=== PATIENT | female | born 1950 | race Caucasian/White ===

== ENCOUNTER 2019-08-10 21:21 | Observation (INO) | payer OTHER ==
[~2019-08-10] VITALS: Ht 154 cm; Wt 56.1 kg
[2019-08-10] MEDS ORDERED: cloNIDine 0.1 MG (CATAPRES) TAB PO ONE ×2 (21:30→21:45)
[2019-08-10] MEDS ORDERED: LISI-556 PO (21:34)
[2019-08-10] MEDS ORDERED: DICL50TA4 PO (21:34)
[2019-08-10] MEDS ORDERED: METO50TA15 PO (21:34)
[2019-08-10] MEDS ORDERED: ATOR20TA66 PO (21:34)
[2019-08-10] MEDS ORDERED: PRED1POW2 MC (21:34)
--- NOTE | 2019-08-10 21:35 | ED Chest Pain ---
General Chief Complaint: Chest Pain Stated Complaint: RAPID HEART BEAT Source: patient, family Exam Limitations: no limitations History of Present Illness Date Seen by Provider: Aug 10, 2019 Time Seen by Provider: 21:33 Initial Comments To ER by private vehicle from home with reports of high blood pressure headache and right arm pain. Patient has had ongoing issues with high blood pressure however she is on lisinopril 5 mg daily and metoprolol. This evening daughter checked the blood pressure found it to be elevated and also noticed the patient to be diaphoretic with complaints of mild chest pain, right shoulder pain and headache. She was at the [facility] 3 days ago for the right shoulder pain and was given prednisone. Timing/Duration: changing over time Severity/Quality: moderate, pressure Location: central Radiation: no radiation Activities at Onset: none ASA po PRESS SETTER: No NTG SL PRESS SETTER: No Allergies and Home Medications Allergies Coded Allergies: No Known Drug Allergies (Unverified , 08/10/19) Home Medications Lisinopril 5 Mg Tablet, 5 MG PO DAILY, (Reported) Metoprolol Tartrate 50 Mg Tablet, Unknown Dose PO BID, (Reported) Patient Home Medication List Home Medication List Reviewed: Yes Review of Systems Review of Systems Constitutional: see HPI EENTM: No Symptoms Reported Respiratory: No Symptoms Reported Cardiovascular: See HPI, Chest Pain Gastrointestinal: No Symptoms Reported Genitourinary: No Symptoms Reported Musculoskeletal: no symptoms reported Skin: no symptoms reported Psychiatric/Neurological: See HPI Endocrine: No Symptoms Reported Hematologic/Lymphatic: No Symptoms Reported Past Hsonses-Jcpvlu-Yllnie Hx Patient Social History Recent Foreign Travel: No Contact w/Someone Who Travel: No Physical Exam Vital Signs Vital Signs - First Documented 08/10/19 21:23 Temp 36.6 Pulse 74 Resp 18 B/P (MAP) 188/120 (142) Pulse Ox 97 O2 Delivery Room Air Capillary Refill : Less Than 3 Seconds Height, Weight, BMI Height: '" Weight: lbs. oz. kg; BMI Method: General Appearance: No Apparent Distress, WD/WN, Obese HEENT: PERRL/EOMI, TMs Normal Respiratory: No Accessory Muscle Use, No Respiratory Distress Cardiovascular: Regular Rate, Rhythm, Normal Peripheral Pulses Gastrointestinal: Normal Bowel Sounds, Non Tender, Soft Neurologic/Psychiatric: Alert, Oriented x3 Skin: Normal Color, Warm/Dry Progress/Results/Core Measures Results/Orders Lab Results Laboratory Tests Test 08/10/19 21:25 Range/Units White Blood Count 8.1 4.3-11.0 10^3/uL Red Blood Count 4.80 4.35-5.85 10^6/uL Hemoglobin 14.5 11.5-16.0 G/DL Hematocrit 42 35-52 % Mean Corpuscular Volume 88 80-99 FL Mean Corpuscular Hemoglobin 30 25-34 PG Mean Corpuscular Hemoglobin Concent 34 32-36 G/DL Red Cell Distribution Width 12.7 10.0-14.5 % Platelet Count 182 130-400 10^3/uL Mean Platelet Volume 12.9 H 7.4-10.4 FL Neutrophils (%) (Auto) 70 42-75 % Lymphocytes (%) (Auto) 25 12-44 % Monocytes (%) (Auto) 5 0-12 % Eosinophils (%) (Auto) 0 0-10 % Basophils (%) (Auto) 0 0-10 % Neutrophils # (Auto) 5.7 1.8-7.8 X 10^3 Lymphocytes # (Auto) 2.0 1.0-4.0 X 10^3 Monocytes # (Auto) 0.4 0.0-1.0 X 10^3 Eosinophils # (Auto) 0.0 0.0-0.3 10^3/uL Basophils # (Auto) 0.0 0.0-0.1 10^3/uL Prothrombin Time 13.3 12.2-14.7 SEC INR Comment 1.0 0.8-1.4 Activated Partial Thromboplast Time 28 24-35 SEC Sodium Level 139 135-145 MMOL/L Potassium Level 4.0 3.6-5.0 MMOL/L Chloride Level 104 98-107 MMOL/L Carbon Dioxide Level 20 L 21-32 MMOL/L Anion Gap 15 H 5-14 MMOL/L Blood Urea Nitrogen 17 7-18 MG/DL Creatinine 0.79 0.60-1.30 MG/DL Estimat Glomerular Filtration Rate > 60 BUN/Creatinine Ratio 22 Glucose Level 166 H 70-105 MG/DL Calcium Level 9.2 8.5-10.1 MG/DL Corrected Calcium 8.5-10.1 MG/DL Magnesium Level 2.1 1.6-2.4 MG/DL Total Bilirubin 0.3 0.1-1.0 MG/DL Aspartate Amino Transf (AST/SGOT) 14 5-34 U/L Alanine Aminotransferase (ALT/SGPT) 18 0-55 U/L Alkaline Phosphatase 97 40-136 U/L Myoglobin 15.0 10.0-92.0 NG/ML Troponin I < 0.028 <0.028 NG/ML B-Type Natriuretic Peptide 197.4 H <100.0 PG/ML Total Protein 8.5 H 6.4-8.2 GM/DL Albumin 4.8 H 3.2-4.5 GM/DL My Orders Orders - KATHERINE GUIDRY APRN Ekg Tracing (08/10/19 21:22) Ct Head Wo (08/10/19 21:29) Cbc With Automated Diff (08/10/19:) Magnesium (08/10/19:) Chest 1 View, Ap/Pa Only (08/10/19:) Ekg Tracing (08/10/19:29) Comprehensive Metabolic Panel (08/10/19:) Myoglobin Serum (08/10/19:) Protime With Inr (08/10/19:) Partial Thromboplastin Time (08/10/19 21:) O2 (08/10/19 21:) Monitor-Rhythm Ecg Trace Only (08/10/19:) Lipid Panel (08/11/19 06:00) Ed Iv/Invasive Line Start (08/10/19 21:29) BNP (08/10/19 21:29) Troponin I (08/10/19 21:) I-Stat Bedside Testing (08/10/19 21:) Ct Angio Chest W (08/10/19 21:29) Aspirin Chewable Tablet (Baby Aspirin Ch (08/10/19 21:45) Clonidine Tablet (Catapres Tablet) (08/10/19 21:45) Iohexol Injection (Omnipaque 350 Mg/Ml 1 (08/10/19 22:30) Ns (Ivpb) (Sodium Chloride 0.9% Ivpb Bag (08/10/19 22:30) Nitroglycerin 0.4 Mg Btl 25's (Nitrostat (08/10/19 22:30) Fentanyl Injection (Sublimaze Injection (08/10/19 23:00) Medications Given in ED Current Medications Medications Dose Ordered Sig/Manisha Route Start Time Stop Time Status Last Admin Dose Admin Aspirin 324 mg ONCE ONCE PO 08/10/19 21:45 08/10/19 21:46 DC 08/10/19 21:42 324 MG Clonidine HCl 0.2 mg ONCE ONCE PO 08/10/19 21:45 08/10/19 21:46 DC 08/10/19 21:42 0.2 MG Iohexol 100 ml ONCE ONCE IV 08/10/19 22:30 08/10/19 22:31 UNV 08/10/19 22:20 100 ML Nitroglycerin 1 TAB Q 5 MIN X 3 NEEDED PRN SL 08/10/19 22:30 08/10/19 22:35 0.4 MG Sodium Chloride 80 ml ONCE ONCE IV 08/10/19 22:30 08/10/19 22:31 UNV 08/10/19 22:20 80 ML Vital Signs/I&O 08/10/19 08/10/19 21:23 21:23 Temp 36.6 Pulse 74 Resp 18 B/P (MAP) 188/120 (142) Pulse Ox 97 O2 Delivery Room Air Room Air Departure Communication (Admissions) Time/Spoke to Admitting Phy: 22:49 223-about 45 minutes after administration of 0.2 mg of clonidine her blood pressure is down to 177/93. Her headache is better but she complains of some persistent mild chest tightness. Daughter is present who translates for her. Does report that the lisinopril was increased from 5 mg to 10 mg daily 3 days ago at [facility]. 2246-she was given one sublingual nitroglycerin, her chest pain is still present but better, blood pressure down to 128/97. We'll give one dose of fentanyl because she also has a headache. 2299-CT chest shows no evidence of coronary embolism no acute chest pathology there is cholelithiasis and a 1.8 cm right lobe of liver nodule, no intracranial pathology either.Further discussion with daughter, the patient is traveling back to their home country of [place] [facility] on Friday, suspect that anxiety may be causing part of these issues. Impression Primary Impression: Chest pain Qualified Codes: R07.9 - Chest pain, unspecified Disposition: ADMITTED INPATIENT Condition: Stable Admissions Decision to Admit Reason: Admit from ER (General) Decision to Admit/Date: Aug 10, 2019 Time/Decision to Admit Time: 22:34 Departure-Patient Inst. Referrals: NO,LOCAL PHYSICIAN (PCP) Primary Care Physician KATHERINE GUIDRY APRN Aug 10, 2019 21:34
[2019-08-10 21:36] LABS: BASOPHILS % (AUTO) 0 % (0-10); EOSINOPHILS % (AUTO) 0 % (0-10); HEMATOCRIT 42 % (35-52); HEMOGLOBIN 14.5 G/DL (11.5-16.0); LYMPHOCYTES % (AUTO) 25 % (12-44); MEAN CORPUSCULAR HEMOGLOBIN 30 PG (25-34); MEAN CORPUSCULAR HGB CONC 34 G/DL (32-36); MEAN CORPUSCULAR VOLUME 88 FL (80-99); MEAN PLATELET VOLUME 12.9 FL (7.4-10.4); MONOCYTES # (AUTO) 0.4 X 10^3 (0.0-1.0); MONOCYTES % (AUTO) 5 % (0-12); NEUTROPHILS # (AUTO) 5.7 X 10^3 (1.8-7.8); NEUTROPHILS % (AUTO) 70 % (42-75); PLATELET COUNT 182 10^3/uL (130-400); RED CELL DISTRIBUTION WIDTH 12.7 % (10.0-14.5); WHITE BLOOD COUNT 8.1 10^3/uL (4.3-11.0)
[2019-08-10] MEDS ORDERED: ASPIRIN 81 MG CHEW (CHILDREN'S ASA) PO ONE (21:45)
[2019-08-10 21:53] LABS: ALANINE AMINOTRANSFERASE 18 U/L (0-55); ALBUMIN 4.8 GM/DL (3.2-4.5); ALKALINE PHOSPHATASE 97 U/L (40-136); BILIRUBIN,TOTAL 0.3 MG/DL (0.1-1.0); BUN/CREATININE RATIO 22; CALCIUM 9.2 MG/DL (8.5-10.1); CARBON DIOXIDE 20 MMOL/L (21-32); CHLORIDE 104 MMOL/L (98-107); CREATININE SERUM 0.79 MG/DL (0.60-1.30); GFR ESTIMATED > 60; GLUCOSE 166 MG/DL (70-105); MAGNESIUM 2.1 MG/DL (1.6-2.4); SODIUM 139 MMOL/L (135-145); TOTAL PROTEIN 8.5 GM/DL (6.4-8.2)
[2019-08-10 21:56] LABS: PROTHROMBIN TIME PATIENT 13.3 SEC (12.2-14.7)
[2019-08-10] MEDS ORDERED: NS 100 ML (IVPB) BAG IV ONE (22:30)
[2019-08-10] MEDS ORDERED: IOHEXOL 350 MG/ML 100 ML (OMNIPAQUE 350) VIAL IV ONE (22:30)
[2019-08-10] MEDS ORDERED: NITROGLYCERIN 0.4 MG SL TABS BTL 25'S SL PRN (22:30)
[2019-08-10] MEDS ORDERED: fentaNYL INJECTION 100 MCG/2 ML AMP IVP ONE (23:00)
[2019-08-11] VITALS (13 sets, daily range): BP systolic 101–152; BP diastolic 61–79
[2019-08-11] MEDS ORDERED: fentaNYL INJECTION 100 MCG/2 ML AMP IV PRN (00:30)
[2019-08-11] MEDS ORDERED: morphine INJ 4 MG/ML 1 ML (VIAL/SYRINGE) IV PRN (00:30)
[2019-08-11] MEDS ORDERED: ONDANSETRON 4 MG/2 ML (SDV) Z0FRAN IV PRN (00:30)
[2019-08-11] MEDS ORDERED: LABETALOL HCL 20 MG/4 ML VIAL IV PRN (00:30)
[2019-08-11] MEDS ORDERED: NITROGLYCERIN 0.4 MG SL TABS BTL 25'S SL PRN (00:30)
[2019-08-11 06:22] LABS: CHOLESTEROL 169 MG/DL (< 200); HDL CHOLESTEROL 43 MG/DL (40-60); TRIGLYCERIDES 151 MG/DL (<150); VLDL CHOLESTEROL 30 MG/DL (5-40)
--- NOTE | 2019-08-11 07:39 | Diagnostic Imaging Report ---
INDICATION: Tachycardia Single PA view of the chest reveals normal-sized heart. There may be mild right perihilar atelectasis and/or pneumonitis. Minimal linear atelectasis or scarring is seen in the left base. There is no evidence of pneumothorax or focal consolidation. No pleural fluid is identified. IMPRESSION: Mild atelectasis and/or pneumonitis in right perihilar region without other definite acute abnormality detected. Dictated by: Dictated on workstation # [id number]
--- NOTE | 2019-08-11 08:00 | Diagnostic Imaging Report ---
PROCEDURE: CT head without contrast. TECHNIQUE: Multiple contiguous axial images were obtained through the brain without the use of intravenous contrast. Auto Exposure Controls were utilized during the CT exam to meet ALARA standards for radiation dose reduction. INDICATION: Headache. Comparison: None available. Findings: No hyperdense hemorrhage or space-occupying mass. There is minimal mineralization within the bilateral basal ganglia is likely senescent etiology. No hydrocephalus or midline shift. The basilar cisterns are normal. Ariza-white matter differentiation is well preserved. The mastoid air cells are clear. Paranasal sinuses are normal. No focal osseous abnormality of the calvarium. Impression: No acute intracranial process. Findings are in agreement with the preliminary report. Dictated by: Dictated on workstation # [id number]
--- NOTE | 2019-08-11 08:03 | Diagnostic Imaging Report ---
PROCEDURE: CT angiography of the chest with contrast. TECHNIQUE: Multiple contiguous axial images were obtained through the chest after uneventful bolus administration of intravenous contrast. 3D reconstructed CTA MIP acquisitions were also performed. Auto Exposure Controls were utilized during the CT exam to meet ALARA standards for radiation dose reduction. INDICATION: Rapid heart rate. FINDINGS: The thyroid does contain low-density nodule in the right lobe with peripheral calcification. Evaluation of the pulmonary arterial system is without evidence of thromboembolism. No filling defects are seen within central, lobar or segmental branches. The thoracic aorta is normal caliber. No dissection is identified. No pericardial or pleural fluid is detected. There is some dependent atelectasis in both lung bases. Otherwise lungs appear clear. Upper abdomen demonstrates small stones in the gallbladder. IMPRESSION: 1. No evidence of pulmonary embolism or thoracic aortic dissection. 2. Cholelithiasis. 3. Right thyroid nodule. Dedicated thyroid ultrasound on a nonemergent basis could be performed for better characterization. Dictated by: Dictated on workstation # [id number]
[2019-08-11] MEDS ORDERED: DICL75TA2 PO (08:51)
[2019-08-11] MEDS ORDERED: METO50TA7 PO (08:51)
[2019-08-11] MEDS ORDERED: ATOR40TA70 PO (08:51)
[2019-08-11] MEDS ORDERED: OMG1KC PO (08:51)
[2019-08-11] MEDS ORDERED: PRD20T PO (08:51)
[2019-08-11] MEDS ORDERED: LISI10TA2 PO (08:51)
[2019-08-11] MEDS ORDERED: ENOXAPARIN 40 MG/0.4 ML (LOVENOX) SYR SC SCH (09:00)
[2019-08-11] MEDS ORDERED: lisINopril 20 MG (PRINIVIL) TABLET PO SCH (09:00)
[2019-08-11] MEDS ORDERED: ASPIRIN E.C. 81 MG (ECOTRIN) TAB PO SCH (09:00)
--- NOTE | 2019-08-11 10:04 | NUR ---
CALLED [facility] FOR A LIST OF RECENTLY FILLED MEDICATIONS, I ALSO HAD A LIST FAXED OVER FROM [facility]. I SPOKE WITH A NURSE AT [facility] ABOUT REPOSITORY MEDS. PATIENT ALSO HAD HER BOTTLES WITH HER. [facility] FILLED: 08-07-[address] 75MG BID 08-07-19 PREDNISONE 20MG 2 DAILY X 5 DAYS THESE WERE FROM [facility]ALK IN CLINIC AND PATIENT HAS BOTH THESE BOTTLES WITH HER REPOSITORY MEDS: 07-02-19 METOPROLOL ER 50MG DAILY 07-02-19 ATORVASTATIN 40MG DAILY 07-02-19 LISINOPRIL 10MG DAILY (PATIENT HAS LISINOPRIL 5MG TABLETS BUT FAMILY STATES THEY INCREASED TO 10MG AND THEY HAVE BEEN TAKING TWO OF THE 5'S BUT ALSO HAVE 10MG TABS AT HOME) ADDITIONALLY THE MED LIST FROM [facility] STATES FISH OIL DAILY, DAUGHTER STATES SHE NORMALLY TAKES A FISH OIL DAILY WHEN SHE IS FEELING BETTER BUT SINCE SHE HAS BEEN UNDER THE WEATHER RECENTLY SHE HAS STOPPED TAKING IT. I LEFT IT ON THE MED [facility] AT THIS TIME.
--- NOTE | 2019-08-11 10:29 | Consultation-Cardiology ---
HPI-Cardiology Cardiology Consultation Date of Consultation 08/11/19 Date of Admission Time Seen by Provider: 10:24 Indication: Chest pain HPI Patient is a 69 y/o female who presented to the ER with complaints of chest pain and elevated BP last night. Had been seeing her PCP for HTN and lisinopril recently increased. Daughter reports patient complaining of chest pain with radiation to right arm last night and noted to be diaphoretic. Patient states she has had intermittent chest pain for several months. Denies any acute chest pain at this time. Denies dyspnea, dizziness or lightheadedness. c/o headache last night, now improved. 69-year-old lady Stateless-speaking, I was able to obtain the history with assistance of her family, has been having chest pain for a long time on and off, radiating to the arm, some shortness of breath, has history of hypertension hyperlipidemia, her chest pain got worse and came into the emergency room. This morning she is feeling better. Denied any chest pain, having mild headache. Home Medications & Allergies Allergies: Coded Allergies: No Known Drug Allergies (Unverified , 08/10/19) Home Medication List Reviewed: Yes Medication list reviewed OAD-Hozpgb-Xzxiqi Hx Patient Social History Marital Status: single Employed/Student: unemployed Alcohol Use: Denies Use Recreational Drug Use: No Smoking Status: Never a Smoker 2nd Hand Smoke Exposure: No Recent Foreign Travel: No Recent Infectious Disease Expo: No Recent Hopitalizations: No Immunizations Up To Date Tetanus Booster (TDap): Unknown Date of Pneumonia Vaccine: May 28, 2019 Date of Influenza Vaccine: May 28, 2019 Past Medical History HTN, HLP Family Medical History Significant Family History: No Pertinent Family Hx Review of Systems-General Review of Systems Constitutional: see HPI; No chills, No diaphoresis, No dizziness, No fever; malaise; No weakness EENTM: No blurred vision, No double vision, No vision loss, No epistaxis, No nose pain, No throat pain Respiratory: see HPI; No cough, No dyspnea on exertion, No short of breath Cardiovascular: see HPI, chest pain; No edema, No Hx of Intervention, No palpitations, No syncope, No vascular heart diseas Gastrointestinal: No abdominal pain, No constipation Genitourinary: No dysuria, No frequency, No hematuria Musculoskeletal: no symptoms reported; No back pain, No joint pain Skin: no symptoms reported; No lesions, No rash Psychiatric/Neurological: See HPI Reviewed Test Results Reviewed Test Results Lab Laboratory Tests 08/10/19 21:25: White Blood Count 8.1, Red Blood Count 4.80, Hemoglobin 14.5, Hematocrit 42, Mean Corpuscular Volume 88, Mean Corpuscular Hemoglobin 30, Mean Corpuscular Hemoglobin Concent 34, Red Cell Distribution Width 12.7, Platelet Count 182, Mean Platelet Volume 12.9H, Neutrophils (%) (Auto) 70, Lymphocytes (%) (Auto) 25, Monocytes (%) (Auto) 5, Eosinophils (%) (Auto) 0, Basophils (%) (Auto) 0, Neutrophils # (Auto) 5.7, Lymphocytes # (Auto) 2.0, Monocytes # (Auto) 0.4, Eosinophils # (Auto) 0.0, Basophils # (Auto) 0.0, Prothrombin Time 13.3, INR Comment 1.0, Activated Partial Thromboplast Time 28, Sodium Level 139, Potassium Level 4.0, Chloride Level 104, Carbon Dioxide Level 20L, Anion Gap 15H, Blood Urea Nitrogen 17, Creatinine 0.79, Estimat Glomerular Filtration Rate > 60, BUN/Creatinine Ratio 22, Glucose Level 166H, Calcium Level 9.2, Corrected Calcium , Magnesium Level 2.1, Total Bilirubin 0.3, Aspartate Amino Transf ( AST/SGOT) 14, Alanine Aminotransferase (ALT/SGPT) 18, Alkaline Phosphatase 97, Myoglobin 15.0, Troponin I < 0.028, B-Type Natriuretic Peptide 197.4H, Total Protein 8.5H, Albumin 4.8H 08/10/19 22:31: Lab Scanned Report LAB Reports 08/10/19 23:45: Troponin I < 0.028 08/11/19 05:55: Troponin I < 0.028, Triglycerides Level 151H, Cholesterol Level 169, LDL Cholesterol Direct 110, VLDL Cholesterol 30, HDL Cholesterol 43 ECG Impression ECG Initial ECG Rhythm: Normal Sinus Physical Exam Physical Exam Vital Signs Vital Signs - First Documented 08/10/19 21:23 Temp 36.6 Pulse 74 Resp 18 B/P (MAP) 188/120 (142) Pulse Ox 97 O2 Delivery Room Air Capillary Refill : Less Than 3 Seconds Height, Weight, BMI Height: '" Weight: lbs. oz. kg; 23.65 BMI Method: General Appearance: No Apparent Distress, WD/WN, Obese HEENT: PERRL/EOMI, TMs Normal Neck: Non Tender, Supple; No Carotid Bruit Respiratory: Chest Non Tender, Lungs Clear, No Accessory Muscle Use, No Respiratory Distress Cardiovascular: Regular Rate, Rhythm, No Edema, No Gallop, No JVD, No Murmur, Normal Peripheral Pulses Gastrointestinal: Normal Bowel Sounds, Non Tender, Soft Rectal: Deferred Back: No CVA Tenderness Extremity: Non Tender, No Calf Tenderness Neurologic/Psychiatric: Alert, Oriented x3, camera mechanic II-XII Norm as Tested Skin: Normal Color, Warm/Dry A/P-Cardiology Admission Diagnosis Chest pain HTN HLP Right shoulder pain Assessment/Plan Chest pain, nonspecific etiology, resolved. EKG reveals no acute ST changes, cardiac enzymes negative. BNP mildly elevated. Was given SL nitro in ER with some relief of her CP. Planning for EST for further evaluation. HTN- maintained on lisinopril and Toprol XL as outpatient. Recently started on oral steroid for right shoulder pain which could be cause of elevated BP. Restart home BP medications and continue to monitor. HLP- maintained on statin. Right shoulder pain, worse with movement and palpation, appears to be musculoskeletal in nature. Was started on PO steroids on 08/07/2019. Headache- improved. Multiple risk factors for underlying CAD, planning for stress test today. Thank you for allowing us to participate in the management of Ms. Garcia. This is Neli Eng PA-C, as a scribe for Dr. Clifford. Patient was seen and evaluated with Neli, examination performed, management plan was discussed, agree with the current scribed note, I made few changes to the note using Italic font Patient is not having any active pain at this time, cardiac enzymes and EKG did not show any acute abnormality Had elevated blood pressure Arrival to the emergency room yesterday, blood pressure is better at this time Restart home medication, planning to evaluate stress test today Patient was having significant headache yesterday, had mild headache this morning, feeling better at this time Clinical Quality Measures AMI/AHF: ASA po Prior to arrival: No DVT/VTE Risk/Contraindication: Risk Factor Score Per Nursin RFS Level Per Nursing on Admit: 2=Moderate NELI LEONG Aug 11, 2019 10:29 ANIBAL CLIFFORD MD Aug 11, 2019 11:05
--- NOTE | 2019-08-11 10:48 | NUR ---
1018 PT TO NUCLEAR MEDICINE WITH [facility] STAFF AND DAUGHTER.
[2019-08-11] MEDS ORDERED: REGADENOSON 0.4 MG/5 ML SYR (LEXISCAN) IV ONE ×2 (11:14→11:30)
--- NOTE | 2019-08-11 11:40 | Short Stay Summary-Hospitalist ---
History of Present Illness HPI/Chief Complaint CC: Chest pain HPI: This is a 69yo female who only speaks eritrean, who presented to the ER with chest pain. Pt was found to have risk factors for heart diseases so she was admitted, cardiac risk-stratified, Troponins all were normal and cardiac stress test was negative so she will be discharged on her current home BP medication. Source: patient, family Exam Limitations: language barrier Date Seen 08/11/19 Time Seen by a Provider: 10:00 Attending Physician Klarissa Vazquez DO [facility] Center/Se,[facility] Referring Physician Date of Admission Aug 10, 2019 at 22:31 Home Medications & Allergies Home Medications Reviewed patient Home Medication Reconciliation performed by pharmacy medication reconciliations property technician and/or nursing. Patients Allergies have been reviewed. Allergies Allergies Coded Allergies No Known Drug Allergies (Unverified08/10/19) Past Bsntdzt-Uefdlh-Rpkhrp Hx Past Med/Social Hx: Reviewed Nursing Past Med/Soc Hx, Reviewed and Corrections made Patient Social History Marrital Status: single Employed/Student: unemployed Alcohol Use: Denies Use Recreational Drug Use: No Smoking Status: Never a Smoker 2nd Hand Smoke Exposure: No Recent Foreign Travel: No Contact w/other who traveled: No Recent Hopitalizations: No Recent Infectious Disease Expo: No Immunizations Up To Date Tetanus Booster (TDap): Unknown Date of Pneumonia Vaccine: May 28, 2019 Date of Influenza Vaccine: May 28, 2019 Seasonal Allergies Seasonal Allergies: No Past Medical History Surgeries: Orthopedic Cardiac: Coronary Artery Disease, High Cholesterol, Hypertension : No Menopausal Musculoskeletal: Arthritis History of Blood Disorders: No Family History No Pertinent Family Hx Review of Systems Constitutional: see HPI Cardiovascular: chest pain Physical Exam Physical Exam Vital Signs Vital Signs - First Documented 08/10/19 21:23 Temp 36.6 Pulse 74 Resp 18 B/P (MAP) 188/120 (142) Pulse Ox 97 O2 Delivery Room Air Capillary Refill : Less Than 3 Seconds Height, Weight, BMI Height: '" Weight: lbs. oz. kg; 23.65 BMI Method: General Appearance: No Apparent Distress, WD/WN, Obese HEENT: PERRL/EOMI, TMs Normal Neck: Non Tender, Supple; No Carotid Bruit Respiratory: Chest Non Tender, Lungs Clear, No Accessory Muscle Use, No Respiratory Distress Cardiovascular: Regular Rate, Rhythm, No Edema, No Gallop, No JVD, No Murmur, Normal Peripheral Pulses Gastrointestinal: Normal Bowel Sounds, Non Tender, Soft Rectal: Deferred Back: No CVA Tenderness Extremity: Non Tender, No Calf Tenderness Neurologic/Psychiatric: Alert, Oriented x3, hydroponics grower II-XII Norm as Tested Skin: Normal Color, Warm/Dry Results Results/Procedures Labs Laboratory Tests 08/10/19 21:25 Patient resulted labs reviewed. Short Stay Diagnosis Discharge Diagnosis-Short Stay Admission Diagnosis Chest pain HTN HLP Final Discharge Diagnosis Chest pain with negative troponins and EST HTN HLP Conclusion Plan DC home Diagnosis/Problems Diagnosis/Problems (1) Chest pain Status: Acute Qualifiers: Qualified Codes: R07.9 - Chest pain, unspecified Clinical Quality Measures AMI/AHF: ASA po Prior to arrival: No DVT/VTE Risk/Contraindication: Risk Factor Score Per Nursin RFS Level Per Nursing on Admit: 2=Moderate KLARISSA VAZQUEZ DO Aug 11, 2019 11:40
--- NOTE | 2019-08-11 15:16 | STRESS TEST ---
DATE OF SERVICE: 08/11/2019 LEXISCAN MYOVIEW STRESS TEST REFERRING PHYSICIAN: [facility]. Baseline heart rate is 60. Baseline blood pressure 127/86. Baseline EKG sinus rhythm with no ischemic changes. In summary, the patient was injected with 10.56 mCi of technetium-99 Myoview and the resting images were obtained. Then, the patient received 0.4 mg of Lexiscan followed by 32.8 mCi of technetium-99 Myoview. Throughout the test, there were no EKG changes. The resting and stress images were reviewed and compared in the short axis, horizontal long axis, and vertical long axis views. Review of the images showed good radiotracer uptake with no significant ischemia or infarction. SSS is 0. TID value 1.0. On the gated images, the left ventricle appeared to be normal size with normal contractility. Calculated ejection fraction is 70%. CONCLUSION: 1. The patient tolerated Lexiscan well. 2. No ischemia or infarction on SPECT images. 3. Normal left ventricular size with normal contractility. Calculated ejection fraction is 70%. Job ID: [id number] DocumentID: [id number] Dictated Date: 08/11/2019 12:57:00 Granular Operator Date: 08/11/2019 15:15:16 Dictated By: ANIBAL LLANES MD
== END 2019-08-11 14:03 | disposition home or self-care (01) ==
LOC: ER 21:23 → ICU 22:31
PROVIDERS: ADMIT Internal Medicine; ATTEND Internal Medicine
DX: I10 Essential (primary) hypertension (principal); E78.5 Hyperlipidemia, unspecified; M19.90 Unspecified osteoarthritis, unspecified site; I25.10 Atherosclerotic heart disease of native coronary artery without angina pectoris; E78.00 Pure hypercholesterolemia, unspecified
CPT/HCPCS: 36415; 70450; 71045; 71275; 78452; 80053; 80061; 83735; 83874; 83880; 84484; 85025; 85610; 85730; 93005; 93017; 93041; 96374

== ENCOUNTER → 2022-01-02 | Outpatient (CLI) | payer OTHER ==
[~2022-01-02] MED LIST: ATOR20TA66 PO; ATOR40TA70 PO; DICL50TA4 PO; DICL75TA2 PO; LISI10TA25 PO; LISI5TAB20 PO; METO50TA15 PO; METO50TA7 PO; OMG1KC PO; PRD20T PO; PRED1POW2 MC
[2022-01-02 13:58] VITALS: BP 120/65
== END ==
LOC: CARD 13:27
PROVIDERS: ATTEND Pediatrics
DX: I20.8 Other forms of angina pectoris (principal)

== ENCOUNTER → 2022-03-11 | Outpatient (CLI) | payer OTHER ==
[~2022-03-11] MED LIST changes: +CATHETER FLUSH 10 ML SYR IVP PRN; +REGADENOSON 0.4 MG/5 ML SYR (LEXISCAN) IV ONE
[2022-03-11 09:50] VITALS: BP 138/80
--- NOTE | 2022-03-11 11:17 | Cardiology Stress Test Report ---
Stress Test Report Date of Procedure/Referring: Date of Procedure: Mar 11, 2022 [facility] Admitting Physician Admitting Physician: Attending Physician: Tone Corona DO Indications: CP Baseline Heart Rate: 51 Baseline Blood Pressure: Blood Pressure Systolic: 138 Blood Pressure Diastolic: 80 Baseline Vitals Vital Signs Date Time Temp Pulse Resp B/P (MAP) Pulse Ox O2 Delivery O2 Flow Rate FiO2 03/11/22 09:50 52 138/80 (99) Baseline EKG: Baseline EKG: Sinus bradycardia Summary After explaining the procedure to the patient, she signed a consent and then brought to the stress nuclear laboratory. Patient received 0.4 mg Lexiscan for stress test, ECG, heart rate and blood pressure were monitored continuously. Resting and stress dose of radio tracer were injected, imaging was acquired and reviewed in short axis, horizontal long axis and vertical long axis views. TID: 1.16 SSS: 4 SDS: 4 EF: 79 1. Patient tolerated Lexiscan well 2. Baseline sinus bradycardia persisted during test 3. Breast attenuation with mild decrease uptake involving the basal to mid anterior wall with mild reversibility, most probably secondary to breast attenuation. 4. Normal left ventricular size, EF 79% Copy Copies To 1: [facility] [place] ANIBAL LLANES MD Mar 11, 2022 11:17
== END ==
LOC: CARD 03-06 12:24
PROVIDERS: ATTEND Pediatrics
DX: I20.8 Other forms of angina pectoris (principal)
CPT/HCPCS: 78452; 93017; A9502

== ENCOUNTER → 2023-01-01 | Outpatient (CLI) | payer OTHER ==
[2023-01-01 12:57] VITALS: BP 146/81
--- NOTE | 2023-01-01 15:46 | Cardiology Stress Test Report ---
Stress Test Report Date of Procedure/Referring: Date of Procedure: Jan 01, 2023 [facility] Admitting Physician Admitting Physician: Attending Physician: Tone Corona DO Baseline Heart Rate: 55 Baseline Blood Pressure: Blood Pressure Systolic: 146 Blood Pressure Diastolic: 81 Baseline Vitals Vital Signs Date Time Temp Pulse Resp B/P (MAP) Pulse Ox O2 Delivery O2 Flow Rate FiO2 01/01/23 12:57 55 146/81 (102) Baseline EKG: Baseline EKG: NSR Summary After explaining the procedure to the patient, she signed a consent and then brought to the stress nuclear laboratory. Patient received 0.4 mg Lexiscan for stress test, ECG, heart rate and blood pressure were monitored continuously. Resting and stress dose of radio tracer were injected, imaging was acquired and reviewed in short axis, horizontal long axis and vertical long axis views. TID: 1.07 SSS: 5 SDS: 4 EF: 66 Patient tolerated Lexiscan well Breast attenuation with mild decrease uptake at the basal to mid anterior wall with mild reversibility Normal left ventricular size, ejection fraction 66% Copy Copies To 1: [facility]/ANIBAL IRVING MD Jan 01, 2023 15:46
== END ==
LOC: CARD 10:35
PROVIDERS: ATTEND Pediatrics
DX: I20.8 Other forms of angina pectoris (principal)
CPT/HCPCS: 78452; 93017; A9502

== ENCOUNTER 2023-01-15 07:46 | Day surgery (SDC) | payer OTHER ==
[2023-01-15] VITALS (8 sets, daily range): BP systolic 108–149; BP diastolic 62–78
[~2023-01-15] VITALS: Ht 152 cm; Wt 74.3 kg
[~2023-01-15 07:46] MED LIST changes: -CATHETER FLUSH 10 ML SYR IVP PRN; -REGADENOSON 0.4 MG/5 ML SYR (LEXISCAN) IV ONE
[2023-01-15] MEDS ORDERED: NS IV 1000 ML 1,000 ML IV ONE (08:00)
[2023-01-15] MEDS ORDERED: NS IV 1000 ML 1,000 ML IV SCH ×2 (08:00→10:45)
[2023-01-15] MEDS ORDERED: NS IV 1000 ML 1,000 ML ONE (08:04)
[2023-01-15] MEDS ORDERED: HEParin (CATH LAB) 2,000 ML IV ONE (08:04)
[2023-01-15] MEDS ORDERED: LIDOCAINE 1% INJ 20 ML VIAL ONE (08:04)
[2023-01-15 08:27] LABS: HEMATOCRIT 38 % (35-52); HEMOGLOBIN 13.1 g/dL (11.5-16.0); MEAN CORPUSCULAR HEMOGLOBIN 30 pg (25-34); MEAN CORPUSCULAR HGB CONC 34 g/dL (32-36); MEAN CORPUSCULAR VOLUME 88 fL (80-99); MEAN PLATELET VOLUME 11.8 fL (9.0-12.2); PLATELET COUNT 199 10^3/uL (130-400); WHITE BLOOD COUNT 5.2 10^3/uL (4.3-11.0)
[2023-01-15 08:28] LABS: BILIRUBIN,URINE NEGATIVE (NEGATIVE); CLARITY,URINE CLEAR; COLOR,URINE YELLOW; GLUCOSE, URINE (UA) NEGATIVE (NEGATIVE); KETONES,URINE NEGATIVE (NEGATIVE); LEUKOCYTE ESTERASE ,URINE 1+ (NEGATIVE); NITRITE,URINE NEGATIVE (NEGATIVE); PROTEIN,URINE NEGATIVE (NEGATIVE)
--- NOTE | 2023-01-15 08:35 | Diagnostic Imaging Report ---
INDICATION: Chest pain. TECHNIQUE/COMPARISON: A frontal chest was obtained at 8:13 AM and compared to 08/10/2019. FINDINGS: There is cardiomegaly. There is no focal infiltrate, pneumothorax, or pleural fluid. IMPRESSION: Cardiomegaly with no acute process in the chest. Dictated by: Dictated on workstation # [id number]
[2023-01-15 08:39] LABS: ALBUMIN 4.3 GM/DL (3.2-4.5); POTASSIUM 3.8 MMOL/L (3.6-5.0); PROTHROMBIN TIME PATIENT 12.9 SEC (12.2-14.7)
[2023-01-15 08:39] LABS: BACTERIA,URINE TRACE /HPF; RBC,URINE 0-2 /HPF
[2023-01-15 08:40] LABS: CALCIUM 9.4 MG/DL (8.5-10.1)
[2023-01-15 08:42] LABS: TOTAL PROTEIN 7.8 GM/DL (6.4-8.2)
[2023-01-15 08:43] LABS: BILIRUBIN,TOTAL 0.6 MG/DL (0.1-1.0)
[2023-01-15 08:45] LABS: CREATININE SERUM 0.74 MG/DL (0.60-1.30)
[2023-01-15] MEDS ORDERED: MELA3TAB39 PO (09:01)
[2023-01-15] MEDS ORDERED: IBUP-1773 PO (09:01)
[2023-01-15] MEDS ORDERED: LOSA1TAB20 PO (09:01)
[2023-01-15] MEDS ORDERED: ESCI-2 PO (09:01)
[2023-01-15] MEDS ORDERED: CHOL-34 PO (09:01)
[2023-01-15] MEDS ORDERED: METO50TA7 PO (09:01)
[2023-01-15] MEDS ORDERED: fentaNYL INJ 100 MCG/2 ML AMP ONE (09:43)
[2023-01-15] MEDS ORDERED: NITRO DRIP 25000 MCG/D5W 0 ML IV ONE (09:44)
[2023-01-15] MEDS ORDERED: MIDAZOLAM 5 MG/5 ML (VERSED) VIAL ONE (09:44)
[2023-01-15] MEDS ORDERED: HEParin 1000 UNIT/ML (10ML VIAL) FOR BOLUS ONE (09:44)
[2023-01-15] MEDS ORDERED: VERAPAMIL 5 MG/2 ML (CALAN) VIAL IV ONE (09:44)
--- NOTE | 2023-01-15 09:44 | Cardiac Procedure Note-CS/ASA ---
Pre-Procedure Note Pre-Op Procedure Note Date of Available H&P: Jan 07, 2023 Date H&P Reviewed: Jan 15, 2023 Time H&P Reviewed: 09:44 History & Physical: H&P Reviewed, Patient Examed, No changes noted Pre-Operative Diagnosis: CAD Moderate Sedation PreProcedure Time 09:44 ASA Score 3 Airway Lungs Heart ASA score ASA 1: a normal healthy patient ASA 2: a patient with a mild systemic disease (mid diabetes, controlled hypertension, obesity ASA 3: a patient with a severe systemic disease that limits activity (angina, COPD, prior Myocardial infarction) ASA 4: a patient with an incapacitating disease that is a constant threat to life (CHF, renal failure) ASA 5: a moribund patient not expected to survive 24 hrs. (ruptured aneurysm) ASA 6: a declared brain- patient whose organs are being harvested. For emergent operations, add the letter E after the classification Mallampati Classification Grade 3 Sedation Plan Analgesia, Amnesia, Plan communicated to team members, Discussed options with patient/fam, Discussed risks with patient/fam The patient is an appropriate candidate to undergo the planned procedure, sedation, and anesthesia. The patient immediately re-assessed prior to indication. ANIBAL LLANES MD Jan 15, 2023 09:44
[2023-01-15] MEDS ORDERED: PATIENT MAY USE OWN MEDS, ALL PO SCH (10:45)
--- NOTE | 2023-01-15 10:47 | Discharge Inst-Post CATH ---
Discharge Inst-CATH/EP Problems Reviewed?: Yes Post Cardiac Cath/EP D/C Inst Follow Up/Plan Appointment with Dr. Clifford's office in 2 to 4 weeks <b>CARDIAC CATH/EP PROCEDURE DISCHARGE INSTRUCTIONS</b> ACTIVITY * Go Home directly and rest. * Limit activity of the leg (or wrist if it was used) for 7 days including aer obics, swimming, jogging, bicycling, etc. * Restrict stair-climbing for 7 days if possible, if not, climb up with your non-cath leg, then bring together on the same step. * Avoid lifting, pushing, pulling or excessive movement of the affected extremi ty for 7 days. * Customary sexual activity may be resumed after 2 days-use caution not to use a position that strains or causes pain to the affected extremity. * No driving for 24 hours. * NO SMOKING. * Avoid straining for bowel movements for 7 days. * Gentle walking on level ground is allowed. * Returning to work will depend on the type of procedure and the results. Your doctor will discuss this with you. CALL YOUR DOCTOR FOR ANY OF THE FOLLOWING: *If bleeding from the puncture site occurs- Apply gentle pressure to site with clean cloth and call your doctor or EMS. * If a knot or lump forms under the skin, increases in size, or causes pain. * If bruising appears to be worsening or moving further down your leg instead of disappearing. * Temperature above 101 F. CARE OF YOUR GROIN INCISION; * Bruising or purple discoloration of the skin near the puncture site is common. * You may shower only, no bathtub bathing for 5 days. Be careful to avoid slipping as your leg may feel stiff. * If a closure device was used on your femoral artery, please see the attached guide regarding care of the device and your leg. * Leave dressing on FOR 24 hours. CARE OF YOUR WRIST INCISION; * Bruising or purple discoloration of the skin near the puncture site is common. * You may shower. * DO NOT submerge wrist. * Leave dressing on FOR 24 hours. ANIBAL CLIFFORD MD Jan 15, 2023 10:47
--- NOTE | 2023-01-15 10:50 | Cardiac Cath Report ---
Cardiac Cath Report Physician (s)/Inclusion Teacher (s) Physician ANIBAL LLANES MD Pre-Procedure Diagnosis Pre-Procedure Diagnosis: CAD Post-Procedure Note Procedure Start Date: Jan 15, 2023 Name of Procedure: Left heart catheterization Findings/Procedure Note PROCEDURE NOTE: 72-year-old lady with history of hypertension, hyperlipidemia, has been having recurrent chest pain, had an abnormal stress test, scheduled for cardiac catheterization possible PTCA. After explaining the procedure to the patient, all pros and cons were explained, all questions were answered. The patient signed the consent and then she was placed in the cardiac catheterization laboratory. Attempt to place the sheath in the right radial artery has failed, groin was prepped in SL fashion local anesthesia was used. Sheath placed in the right femoral artery. Pato' right and left catheter were used to access the coronary system. Pato right was prolapsed to the left ventricular cavity, pressure was measured no left ventriculogram was done. At the end of the procedure the sheath was removed. Closure device was deployed FINDINGS: Hemodynamics LV 130/16, end-diastolic pressure of 16 Aorta 132/62 mean of 69 ANATOMY: Left Main is free of obstructive disease Left Anterior Descending is small to moderate in size with no obstructive disease Left Circumflex is large dominant artery with no obstructive disease Right Coronary Artery is a small nondominant artery LV Gram was not done, pressure was measured CONCLUSION: Slightly tortuous LAD that is small to moderate in size with small vessel disease nonobstructive disease otherwise dominant circumflex artery with no obstructive disease Normal left ventricular end-diastolic pressure DISCUSSION AND RECOMMENDATION: Abnormal stress test is probably due to small vessel disease or extracardiac attenuation, medical therapy is recommended no intervention is warranted Anesthesia Type: Conscious Sedation Estimated blood loss (mL): 10 ml Contrast Amount: 26 ml Total Radiation Dose: 266 mGy Post-Procedure Diagnosis Post-operative diagnosis: Chest pain Coronary artery disease Hypertension Hyperlipidemia ANIBAL LLANES MD Jan 15, 2023 10:50
== END 2023-01-15 14:21 | disposition home or self-care (01) ==
LOC: CATH 07:46 → SDC 10:57 → CATH 14:21
PROVIDERS: ATTEND Internal Medicine Cardiovascular Disease
DX: I25.10 Atherosclerotic heart disease of native coronary artery without angina pectoris (principal); I10 Essential (primary) hypertension; E78.2 Mixed hyperlipidemia; R09.89 Other specified symptoms and signs involving the circulatory and respiratory systems; Z79.899 Other long term (current) drug therapy
CPT/HCPCS: 71045; 80053; 80061; 81000; 85027; 85610; 85730; 87077; 87081; 87088; 93005; 93458; C1760; C1894; 36415